=== PATIENT | male | born 1960 | race Caucasian/White ===

== ENCOUNTER 2021-07-04 17:07 | Emergency (ER) | payer BC ==
[2021-07-04 18:18] LABS: CORONAVIRUS COVID-19 NAA POSITIVE (NEGATIVE); RESPIRATORY SYNCYTIAL VIR NAA NEGATIVE (NEGATIVE)
[2021-07-04] MEDS ORDERED: Dexamethasone 1 MG/ML Oral Drops 4 ML UD Cup PO ONE (18:28)
--- NOTE | 2021-07-04 18:28 | EDM.PDOC ---
ED HPI GENERAL MEDICAL PROBLEM - General Chief Complaint: Respiratory Problem Stated Complaint: SHORT OF BREATH Time Seen by Provider: 07/04/21 18:00 Source of Information: Reports: Patient History Limitations: Reports: No Limitations - History of Present Illness INITIAL COMMENTS - FREE TEXT/NARRATIVE: Patient states over the last 2 to 3 days he has had a clear mucus productive cough and he woke up 2 days ago with a burning in his left side of his sinuses. He says he feels like he is a little short of breath every now and then and it may last for few seconds are few minutes but then he gets better. Other than this he states he feels fine and has no other complaints at this time he denies any fever myalgias nausea vomiting diarrhea no sore throat. He said he has been drinking plenty of fluids and eating okay lots of Sprite Gatorade water at least a half a gallon a day. He denies any PND orthopnea no lower extremity edema Duration: Day(s): Improves with: Reports: None Worsens with: Reports: None Associated Symptoms: Reports: Cough, cough w sputum, Shortness of Breath, Weakness. 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, flonase, benadryl - Related Data Allergies Allergy/AdvReac Type Severity Reaction Status Date / Time No Known Allergies Allergy Verified 07/04/21 17:29 Social & Family History - Tobacco Use Tobacco Use Status *Q: Never Tobacco User - Caffeine Use Caffeine Use: Reports: Soda - Recreational Drug Use Recreational Drug Use: No ED ROS GENERAL - Review of Systems Review Of Systems: See Below Constitutional: Denies: Fever, Chills, Malaise, Weakness, Fatigue, Decreased Appetite HEENT: Reports: No Symptoms, Other (Negative loss of taste or smell) Respiratory: Reports: Shortness of Breath, Cough, Sputum. Denies: Wheezing, Pleuritic Chest Pain Cardiovascular: Reports: No Symptoms. Denies: Dyspnea on Exertion, Edema, Orthopnea, PND, Syncope Endocrine: Reports: No Symptoms GI/Abdominal: Reports: No Symptoms : Reports: No Symptoms Musculoskeletal: Reports: No Symptoms Skin: Reports: No Symptoms Neurological: Reports: No Symptoms Psychiatric: Reports: No Symptoms Hematologic/Lymphatic: Reports: No Symptoms Immunologic: Reports: No Symptoms ED EXAM, GENERAL - Physical Exam Exam: See Below Exam Limited By: No Limitations General Appearance: Alert, WD/WN, No Apparent Distress, Other (Patient looks very well no signs or symptoms of any respiratory distress he is talking 15-20 word sentences with no distress noted) Eye Exam: Bilateral Eye: EOMI, Normal Inspection, PERRL Ears: Normal External Exam, Hearing Grossly Normal Nose: Normal Inspection, Normal Mucosa, No Blood Throat/Mouth: Normal Inspection, Normal Lips, Normal Teeth, Normal Gums, Normal Oropharynx, Normal Voice, No Airway Compromise Head: Atraumatic, Normocephalic Neck: Normal Inspection, Supple, Non-Tender, Full Range of Motion Respiratory/Chest: No Respiratory Distress, Lungs Clear, Normal Breath Sounds, No Accessory Muscle Use, Chest Non-Tender. No: Decreased Breath Sounds, Crackles, Rales, Rhonchi, Wheezing, Accessory Muscle Use, Retractions Cardiovascular: Normal Peripheral Pulses, Regular Rate, Rhythm, No Edema, No Gallop, No JVD, No Murmur, No Rub GI/Abdominal: Normal Bowel Sounds, Soft, Non-Tender, No Organomegaly, No Distention Extremities: Normal Inspection, Normal Range of Motion, Non-Tender, No Pedal Edema, Normal Capillary Refill Neurological: Alert, Oriented, CN II-XII Intact, Normal Cognition, Normal Gait Psychiatric: Normal Affect, Normal Mood Skin Exam: Warm, Dry, Intact, Normal Color, No Rash Course - Vital Signs Text/Narrative:: Covid positive Secondary to patient looks very well no signs or symptoms of any respiratory distress will treat as an outpatient Decadron 8 mg p.o. here 8 mg daily x5 days instructed patient follow-up with a primary care provider for the possibility of ordering outpatient antibiotic infusion Discussion with the patient if anything got worse or changes to return here for reevaluation Heart rate was rechecked down to 90 Chest x-ray no acute findings no infiltrates noted per radiology there is some vascular crowding Last Recorded V/S: Last Vital Signs Temp 37.7 C 07/04/21 17:25 Pulse 105 H 07/04/21 17:25 Resp 18 07/04/21 17:25 BP 136/72 07/04/21 17:25 Pulse Ox 91 L 07/04/21 17:25 - Orders/Labs/Meds Labs: Laboratory Tests 07/04/21 Range/Units 17:16 Influenza Type A RNA Negative (NEGATIVE) RSV RNA ([facility]) Negative (NEGATIVE) Influenza Type B RNA Negative (NEGATIVE) SARS-CoV-2 RNA ([facility]) Positive H (NEGATIVE) Meds: Medications Discontinued Medications Generic Name Dose Route Start Last Admin Trade Name Fernando PRN Reason Stop Dose Admin Dexamethasone 8 mg 07/04/21 18:28 Dexamethasone 1 Mg/Ml Oral Drops 4 Ml Ud Cup PO 07/04/21 18:29 ONETIME ONE Departure - Departure Time of Disposition: 18:25 Disposition: Home, Self-Care 01 Condition: Good Clinical Impression: Shortness of breath, COVID - Discharge Information *PRESCRIPTION DRUG MONITORING PROGRAM REVIEWED*: No *COPY OF PRESCRIPTION DRUG MONITORING REPORT IN PATIENT BUTCH: No Referrals: PCP,None [Primary Care Provider] - Forms: ED Department Discharge Sepsis Event Note (ED) - Evaluation Sepsis Screening Result: No Definite Risk - Focused Exam Vital Signs: Vital Signs Temp Pulse Resp BP Pulse Ox 07/04/21 17:25 37.7 C 105 H 18 136/72 91 L - Problem List & Annotations (1) COVID SNOMED Code(s): 917106632 Code(s): U07.1 - COVID-19 Status: Acute Current Visit: Yes (2) Shortness of breath SNOMED Code(s): 676233586 Code(s): R06.02 - SHORTNESS OF BREATH Status: Acute Current Visit: Yes
--- NOTE | 2021-07-04 18:32 | CR ---
[id number] RAD/RAD Chest PA or AP 1V EXAM: RAD Chest PA or AP 1V INDICATION: SHORTNESS OF BREATH, ACUTE. COMPARISON: None. DISCUSSION: Cardiomediastinal silhouette is normal in size and contour. No infiltrate, effusion, pneumothorax, or edema. Low lung volumes associated vascular crowding IMPRESSION: Low lung volumes associated vascular crowding. Otherwise, no acute cardiopulmonary findings. Justin Cadena DO 07/04/21 1831 Thank you for allowing us to participate in the care of your patient.
== END 2021-07-04 18:46 | disposition home or self-care (01) ==
LOC: VM.ED 17:07
DX: U07.1 COVID-19 (principal)
CPT/HCPCS: 0241U; 71045; 99285

== ENCOUNTER 2022-04-12 12:28 | Emergency (ER) | payer BC | END 2022-04-12 14:34 | disposition home or self-care (01) | LOC: VM.ED 12:28 | DX: M79.671 Pain in right foot (principal); H69.92 Unspecified Eustachian tube disorder, left ear | CPT/HCPCS: 73630-RT; 99283 ==